=== PATIENT | female | born 1960 | race Two or more races ===

== ENCOUNTER 2022-02-25 00:05 | Emergency (ER) | payer OTHER ==
[2022-02-25] MEDS ORDERED: Ondansetron 4 MG/2 ML SDV IVPUSH ONE (01:03)
[2022-02-25] MEDS ORDERED: Sodium Chloride 0.9% 10 ML Syringe FLUSH PRN (01:03)
[2022-02-25] MEDS ORDERED: fentaNYL 100 MCG/2 ML SDV IVPUSH ONE (01:04)
[2022-02-25] MEDS ORDERED: Sodium Chloride 0.9% 10 ML Syringe FLUSH ONE (01:14)
[2022-02-25] MEDS ORDERED: Iopamidol 612 MG/ML 100 ML Bottle IV SCH (01:15)
[2022-02-25] MEDS ORDERED: Sodium Chloride 0.9% 50 ML IV SCH (01:15)
[2022-02-25] MEDS ORDERED: Potassium Chloride 20 MEQ, Lidocaine 1% 2 ML in Sodium Chloride 0.9% 100 ML IV SCH (02:30)
[2022-02-25] MEDS ORDERED: Lactated Ringers 1,000 ML IV ONE (02:47)
[2022-02-25] MEDS ORDERED: Potassium Chloride 20 MEQ in Premix Bag 1 BAG IV ONE (04:42)
[2022-02-25] MEDS ORDERED: Lidocaine 1% 5 ML VIAL INJECT ONE (04:43)
== END 2022-02-25 07:25 | disposition home or self-care (01) ==
LOC: JP.ED 00:05
DX: K56.600 Partial intestinal obstruction, unspecified as to cause (principal); K45.0 Other specified abdominal hernia with obstruction, without gangrene; E87.6 Hypokalemia; E78.00 Pure hypercholesterolemia, unspecified; I10 Essential (primary) hypertension; Z79.899 Other long term (current) drug therapy
CPT/HCPCS: 36415; 74177; 80048; 80076; 83605; 83690; 85025; 96365; 96366; 96375; 99283; 99284-25; J2405; J3010; J3480; J3490; Q9967

== ENCOUNTER 2022-02-28 06:10 | Inpatient (IN) | payer OTHER ==
[2022-02-28] MEDS ORDERED: Scopolamine 1.5 MG Transdermal Patch TOP SCH (06:40)
[2022-02-28] MEDS ORDERED: Acetaminophen 500 MG Tab PO ONE (06:40)
[2022-02-28] MEDS ORDERED: Lidocaine 1% with EPINEPHrine 1:100,000 50 ML MDV ONE (06:47)
[2022-02-28] MEDS ORDERED: Bupivacaine 0.5% 50 ML MDV ONE (06:47)
[2022-02-28] MEDS ORDERED: Dextrose 5%-Lactated Ringers 1,000 ML IV SCH (07:00)
[2022-02-28] MEDS ORDERED: Meropenem 500 MG SDV ONE (07:02)
[2022-02-28] MEDS ORDERED: Potassium Chloride 20 MEQ in Premix Bag 1 BAG IV ONE (07:07)
[2022-02-28] MEDS ORDERED: Potassium Chloride 20 MEQ, Lidocaine 1% 2 ML in Sodium Chloride 0.9% 100 ML IV ONE (07:15)
[2022-02-28] MEDS ORDERED: Ondansetron 4 MG/2 ML SDV IVPUSH PRN (07:23)
[2022-02-28] MEDS ORDERED: diphenhydrAMINE 50 MG/ML SDV IVPUSH PRN (07:23)
[2022-02-28] MEDS ORDERED: diphenhydrAMINE 25 MG Cap PO PRN (07:23)
[2022-02-28] MEDS ORDERED: HYDROmorphone/Normal Saline 6 MG/30 ML PCA Vial IV PRN (07:23)
[2022-02-28] MEDS ORDERED: Naloxone 0.4 MG/ML SDV IVPUSH PRN (07:23)
[2022-02-28] MEDS ORDERED: fentaNYL 250 MCG/5 ML SDV ONE (08:01)
[2022-02-28] MEDS ORDERED: Rocuronium 50 MG/5 ML Vial ONE (08:02)
[2022-02-28] MEDS ORDERED: Glycopyrrolate 0.2 MG/ML 5 ML MDV ONE (08:02)
[2022-02-28] MEDS ORDERED: Ondansetron 4 MG/2 ML SDV ONE (08:02)
[2022-02-28] MEDS ORDERED: Neostigmine Methylsulfate 1 MG/ML 5 ML Syringe ONE (08:02)
[2022-02-28] MEDS ORDERED: Succinylcholine 200 MG/10 ML MDV ONE (08:02)
[2022-02-28] MEDS ORDERED: Propofol 200 MG/20 ML SDV ONE (08:02)
[2022-02-28] MEDS ORDERED: Dexamethasone 4 MG/ML SDV ONE (08:02)
[2022-02-28] MEDS ORDERED: Ropivacaine 32 ML, dexAMETHasone 8 MG, EPINEPHrine 0.4 MG, Sodium Chloride 0.9% 45.6 ML NERVRT SCH ×4 (08:30)
[2022-02-28] MEDS ORDERED: Ketamine 500 MG/5 ML MDV IV SCH (08:30)
[2022-02-28] MEDS ORDERED: KETAMINE IV SCH (08:30)
[2022-02-28] MEDS ORDERED: SODIUM CHLORIDE 0.9% IV SCH (08:30)
[2022-02-28] MEDS ORDERED: hydrOXYzine HCL 100 MG/2 ML SDV IM PRN (10:59)
[2022-02-28] MEDS ORDERED: Cyclobenzaprine 10 MG Tab PO PRN (11:00)
[2022-02-28] MEDS: Ondansetron 4 MG/2 ML SDV IVPUSH PRN ×2 (11:05→17:42)
[2022-02-28] MEDS: Dextrose 5%-Lact Ringers w/KCl 1,000 ML IV SCH ×2 (11:09→17:38)
[2022-02-28] MEDS: Losartan 50 MG Tab PO SCH (14:13)
[2022-02-28] MEDS: cefOXitin 2 GM in Sodium Chloride 0.9% 50 ML IV SCH ×2 (14:17→20:07)
[2022-02-28] MEDS: atorvaSTATin 20 MG Tab PO SCH (20:07)
[2022-03-01] MEDS: cefOXitin 2 GM in Sodium Chloride 0.9% 50 ML IV SCH ×4 (01:39→20:00)
[2022-03-01] MEDS: Dextrose 5%-Lact Ringers w/KCl 1,000 ML IV SCH (01:41)
[2022-03-01] MEDS ORDERED: Iopamidol 612 MG/ML 50 ML SDV PO ONE (04:24)
[2022-03-01] MEDS: Losartan 50 MG Tab PO SCH (08:24)
[2022-03-01] MEDS: Hydrochlorothiazide 25 MG Tab PO SCH (08:27)
[2022-03-01] MEDS ORDERED: Dextrose 5%-Lact Ringers w/KCl 1,000 ML IV SCH (08:30)
[2022-03-01] MEDS: Potassium Phos in 0.9 % NaCl 15 MMOL in Premix Bag 1 BAG IV SCH ×6 (09:31→16:57)
[2022-03-01] MEDS: Dextrose 5%-Lactated Ringers 1,000 ML IV SCH (14:48)
[2022-03-01] MEDS: atorvaSTATin 20 MG Tab PO SCH (20:00)
[2022-03-02] MEDS ORDERED: Bupivacaine 0.5% 50 ML MDV ONE (06:46)
[2022-03-02] MEDS ORDERED: Meropenem 500 MG SDV ONE (06:46)
[2022-03-02] MEDS ORDERED: Lidocaine 1% with EPINEPHrine 1:100,000 50 ML MDV ONE (06:46)
[2022-03-02] MEDS ORDERED: Midazolam 1 MG/ML 2 ML SDV ONE (07:22)
[2022-03-02] MEDS ORDERED: Propofol 200 MG/20 ML SDV ONE (07:22)
[2022-03-02] MEDS ORDERED: fentaNYL 100 MCG/2 ML SDV ONE (07:22)
[2022-03-02] MEDS ORDERED: Ropivacaine 32 ML, dexAMETHasone 8 MG, EPINEPHrine 0.4 MG, Sodium Chloride 0.9% 45.6 ML NERVRT SCH ×4 (07:30)
[2022-03-02] MEDS: Bisacodyl 5 MG Tab PO SCH ×2 (09:14→21:03)
[2022-03-02] MEDS: Losartan 50 MG Tab PO SCH (09:14)
[2022-03-02] MEDS: Hydrochlorothiazide 25 MG Tab PO SCH (09:14)
[2022-03-02] MEDS: Docusate Sodium 100 MG Cap PO SCH ×2 (09:14→21:00)
[2022-03-02] MEDS: Magnesium Sulfate/Water 2 GM in Premix Bag 1 BAG IV SCH ×3 (11:20→21:03)
[2022-03-02] MEDS: Dextrose 5%-Lactated Ringers 1,000 ML IV SCH (15:25)
[2022-03-02] MEDS: atorvaSTATin 20 MG Tab PO SCH (21:03)
[2022-03-03] MEDS: Magnesium Sulfate/Water 2 GM in Premix Bag 1 BAG IV SCH ×4 (03:19→21:00)
[2022-03-03] MEDS: Dextrose 5%-Lactated Ringers 1,000 ML IV SCH ×2 (06:16→20:21)
[2022-03-03] MEDS: HYDROmorphone 2 MG Tab PO PRN ×2 (09:14→17:43)
[2022-03-03] MEDS: Losartan 50 MG Tab PO SCH (09:28)
[2022-03-03] MEDS: Hydrochlorothiazide 25 MG Tab PO SCH (09:28)
[2022-03-03] MEDS: atorvaSTATin 20 MG Tab PO SCH (21:00)
[2022-03-04] MEDS: Magnesium Sulfate/Water 2 GM in Premix Bag 1 BAG IV SCH (04:59)
[2022-03-04] MEDS: HYDROmorphone 2 MG Tab PO PRN (07:48)
[2022-03-04] MEDS: Losartan 50 MG Tab PO SCH (08:26)
[2022-03-04] MEDS: Hydrochlorothiazide 25 MG Tab PO SCH (08:26)
== END 2022-03-04 08:30 | disposition home or self-care (01) | DRG 329 ==
LOC: JP.SDS 06:10 → JP.SDSSCHI 06:10 → JP.MS 08:40 → EDSTATUS 13:45
PROVIDERS: ADMIT Surgery; ATTEND Surgery
PROC: 0DB80ZZ Excision of Small Intestine, Open Approach (ICD-10-PCS; principal; 2022-02-28)
PROC: 0WQF0ZZ Repair Abdominal Wall, Open Approach (ICD-10-PCS; 2022-02-28)
PROC: 0DBW0ZZ Excision of Peritoneum, Open Approach (ICD-10-PCS; 2022-02-28)
PROC: 3E0M05Z Introduction of Adhesion Barrier into Peritoneal Cavity, Open Approach (ICD-10-PCS; 2022-02-28)
PROC: 0WQF0ZZ Repair Abdominal Wall, Open Approach (ICD-10-PCS; 2022-03-02)
DX: K43.0 Incisional hernia with obstruction, without gangrene (principal); K55.011 Focal (segmental) acute (reversible) ischemia of small intestine; K56.51 Intestinal adhesions [bands], with partial obstruction; E78.00 Pure hypercholesterolemia, unspecified; I10 Essential (primary) hypertension; E87.6 Hypokalemia; Z90.49 Acquired absence of other specified parts of digestive tract; Z90.710 Acquired absence of both cervix and uterus
CPT/HCPCS: 36415; 74240; 74240-26; 80048; 80053; 83735; 83880; 84100; 85025; 88302; 88305; 88307; 93005; 93010; 94762; A9270-GY; J0171; J0330; J0690; J0694; J1100; J1170; J2020; J2185; J2250; J2405; J2704; J2710; J2795; J3010; J3475; J3480; J3490; J7121; Q9967